=== PATIENT | female | born 1995 | race Caucasian/White ===

== ENCOUNTER 2018-03-29 20:20 | Outpatient (REF) | payer OTHER, SELFPAY ==
[2018-03-29 21:27] LABS: Abs Immature Grans 0.03 k/cumm (0.0-0.09); Absolute Basophil Count 0.02 k/cumm (0.0-0.2); Absolute Eosinophil Count 0.28 k/cumm (0.0-0.7); Absolute Lymphocyte Count 2.58 k/cumm (1.2-3.4); Absolute Monocyte Count 0.58 k/cumm (0.11-0.7); Absolute Neutrophil Count 5.09 k/cumm (1.2-6.7); Basophils % 0.2; Eosinophils % 3.3; HGB 12.7 g/dL (12.0-15.5); Immature Grans % 0.3; Lymphocytes % 30.1; Mean Corp. HGB Concentration 32.6 g/dL (32.0-36.0); Mean Corpuscular Volume 82.8 fL (80-95); Mean Platelet Volume 11.5 fL (8.0-11.0); Monocytes % 6.8; Neutrophils % 59.3; Platelet Count 312 x1000/uL (130-400); RBC 4.71 m/cumm (4.00-5.20); RBC Distribution Width 14.7 % (11.7-14.6); White Blood Cell Count 8.58 k/cumm (4.4-10.8)
[2018-03-29 21:39] LABS: Iron 57 ug/dL (50-175); Total Iron Binding Capacity 384 ug/dL (250-450); Transferrin Sat 15 % (15-50)
[2018-03-29 21:54] LABS: Ferritin 19 ng/mL (8-388)
== END 2018-03-29 20:40 ==
LOC: NCHCN 20:20
PROVIDERS: PCP Nurse Practitioner Family; Visit Provider Nurse Practitioner Family
DX: J35.1 Hypertrophy of tonsils (principal); D64.9 Anemia, unspecified; F41.8 Other specified anxiety disorders
CPT/HCPCS: 82728; 83540; 83550; 85025

== ENCOUNTER 2018-09-14 10:27 | Outpatient (REF) | payer OTHER, SELFPAY ==
--- NOTE | 2018-09-14 09:15 | PAPFT_PTH ---
PATIENT: VIET CHURCH LOC: [facility] U#:[id number] AGE/SX: 22/F ROOM: RE09/14/[address]: Chyna Lee : 1995 BED: DIS: 09/14/2018 SPEC #: [id number] RECD: 09/14/18 12:55 STATUS: JEREL REQ #: [id number] JOHNNY: 09/14/18 09:[address]: Chyna Lee DEPT: [facility] Cytology RECD BY: Ava Escalera Tissues: 1 - CX/ENDOCX FOR PAP SMEARS Procedures: PAP THIN PREP/[facility] Screening Comments: [id number]
[2018-09-15 14:54] LABS: Chlamydia Result Negative; GC Result Negative; Specimen Description CERVIX
== END 2018-09-14 10:47 ==
LOC: NCHCN 10:27
PROVIDERS: PCP Nurse Practitioner Family; Visit Provider Nurse Practitioner Family
DX: Z00.00 Encounter for general adult medical examination without abnormal findings (principal); Z12.4 Encounter for screening for malignant neoplasm of cervix; Z11.3 Encounter for screening for infections with a predominantly sexual mode of transmission
CPT/HCPCS: 87491; 87591; 88142

== ENCOUNTER 2018-09-14 10:55 | Outpatient (CLI) | payer OTHER, SELFPAY ==
--- NOTE | 2018-09-14 10:11 | DI.RAD_ITS ---
SYMPTOMS/DIAGNOSIS: LOW BACK PAIN, M54.5 LUMBAR SPINE: AP, lateral and bilateral oblique views. No priors. There are five lumbar type vertebral bodies. No spondylolysis or spondylolisthesis is seen. The vertebral bodies, discs and posterior elements are well maintained. The bones are normally mineralized. IMPRESSION: Normal examination.
== END 2018-09-14 11:15 ==
PROVIDERS: PCP Nurse Practitioner Family; Visit Provider Nurse Practitioner Family
DX: M54.5 Low back pain (principal)
CPT/HCPCS: 72110